=== PATIENT | male | born 1975 | race Caucasian/White ===

== ENCOUNTER 2023-03-17 19:21 | Emergency (ER) | payer MEDICAID ==
[~2023-03-17] VITALS: Ht 165.1 cm; Wt 79.4 kg
[2023-03-17 19:42] VITALS: BP_SYST 141; PULSE 83; RESP 19; TEMP 97.8; O2SAT 98
[2023-03-17] MEDS ORDERED: IBUP-1969 PO (20:18)
[2023-03-17 20:33] VITALS: BP_SYST 141; PULSE 83; RESP 19; TEMP 97.8; O2SAT 98
== END 2023-03-17 20:33 | disposition home or self-care (01) ==
LOC: SED 19:21
DX: S63.634A Sprain of interphalangeal joint of right ring finger, initial encounter (principal); Z88.5 Allergy status to narcotic agent; Z79.899 Other long term (current) drug therapy; W23.0XXA Caught, crushed, jammed, or pinched between moving objects, initial encounter; Y93.89 Activity, other specified; Y92.89 Other specified places as the place of occurrence of the external cause; Y99.8 Other external cause status
CPT/HCPCS: 73140-TC; 99283